=== PATIENT | female | born 1940 | race Two or more races ===

== ENCOUNTER 2022-11-23 10:53 | Emergency (ER) | payer OTHER ==
[~2022-11-23] VITALS: Ht 160 cm; Wt 46.3 kg
[2022-11-23] MEDS ORDERED: HUMALOG KW100 UNIT/1 SQ (12:58)
[2022-11-23] MEDS ORDERED: LANTUS SOL100 UNIT/1 SQ (12:58)
[2022-11-23] MEDS ORDERED: LOSARTAN-HCTZ1 EAC1 PO (12:58)
== END 2022-11-23 13:40 | disposition home or self-care (01) ==
LOC: ER 10:53
DX: S09.90XA Unspecified injury of head, initial encounter (principal); W20.1XXA Struck by object due to collapse of building, initial encounter; Y93.9 Activity, unspecified; Y92.814 Boat as the place of occurrence of the external cause